=== PATIENT | female | born 2000 | race African-American/Black ===

== ENCOUNTER 2025-10-02 16:37 | Emergency (ER) | payer SELFPAY ==
[2025-10-02 16:49] VITALS: BP 136/53; PULSE 74; RESP 18; TEMP 36.6; O2SAT 99
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
--- OUTSIDE RECORDS SUMMARY | 2025-10-02 17:01 | XMS_ITS | Clinical Summary ---
Author Organization [facility] Address [address] [place] [address] Care Team Providers Care Sql Developer Dba Name Role Phone Iredell, Cali Devin Primary Care Provider Allergies No known active allergies Medications sertraline (ZOLOFT) 50 mg tabletIndication s:Mild mood disorder Take 1 tablet (50 mg total) by mouth daily 90 tablet 2 09/13/2024 Active Active Problems Problem Noted Date Diagnosed Date Palpitations 02/17/2024 Assessment & Plan (02/17/2024 2:59 PM CDT): New onset. EKG and orthostatic vitals completed in office with normal results. CBC,CMP, and TSH ordered. 48 hour Holter monitor also ordered. Patient to avoid caffeine and strenuous exercise until test results are obtained. Patient instructed to go to the ER if palpations worsen. Routine physical examination 12/27/2023 Morbid obesity with BMI of 40.0-44.9, adult 11/30 Tinnitus of both ears 01/08/2023 Mild mood disorder 05/01/2020 Resolved Problems Problem Noted Date Diagnosed Date Resolved Date Sensation of fullness in right ear 01/08/2023 12/27/2023 Immunizations Immunization Administration Dates Next Due DTP 01/21/2004, 0,07/04/1999,04/29/1999, 02/28/1999 DTaP 01/21/2004, 0,07/04/1999,04/29/1999, 02/28/1999 DTaP / IPV 01/21/2004,1999,04/29/1999 ,02/28/1999 HPV, Unspecified 06/05/2014,02/27/2012, 1 Hep A, Adult 07/24/2011 Hep A, Unspecified 06/05/2014,07/24/2011 Hep B / HiB 01/02/2000,04/29/1999,02/28/1999 Hep B Vaccine 01/02/2000,04/29/1999,02/28/1999 Hib (PRP-OMP) 01/02/2000,04/29/1999,02/28/1999 IPV 01/21/2004, 0,1999,04/29/1999, 02/28/1999 Influenza, Unspecified 12/27/2023(Deferr ed: Patient Refused),10/29/2023(Deferred: Patient Refused),01/02/2000,04/29/1999,02/28/1999 MMR 01/21/2004,03/26/2000 MMRV 01/21/2004,03/26/2000 Meningococcal MCV4, Unspecified 06/17/2016,07/24 Meningococcal MCV4P (Menactra) 07/24/2011 Pneumococcal Conjugate Pcv20 12/27/2023(Deferred : Patient Refused) Tdap 04/30/2010 Varicella 05/04/2008,01/02/2000 Medical History Medical History Date Comments Anxiety Depression Ear problems Tinnitus Family History Medical History Relation Name Comments No Known Problems Father No Known Problems Mother Relation Name Status Comments Father Alive Mother Alive Social History Tobacco Use Types Packs/Day Years Used Date Smoking Tobacco: Never Smokeless Tobacco: Never Tobacco Cessation:Counseling Given: Not Answered Alcohol Use Standard Drinks/Week Comments Never 0 (1 standard drink = 0.6 oz pur e alcohol) AUDIT-C Answer Date Recorded Q1: How often do you have a drink containing alc ohol? Monthly or less 12/27/2023 Q2: How many drinks containi ng alcohol do you have on a typical day when you are drinking? 1 or 2 12/27/2023 Q3: How often do you have si x or more drinks on one occasion? Never 12/27/2023 PHQ-2 Answer Date Recorded PHQ-2 Total Score (If total score is 3 or more points, staff should administer the PHQ-9) 0 12/27/2023 Personal Safety Answer Date Recorded Getting School Help Needed Not on file 11/30 Comments No Sex and Gender Information Value Date Recorded Sex Assigned at Not on file Legal Sex Female 10:13 PM CDT Gender Identity Female 05/21/2021 11:03 PM CDT Sexual Orientation Not on file Last Filed Vital Signs Vital Sign Reading Time Taken Comments Blood Pressure 100/62 02/17/2024 2:01 PM CDT Pulse 85 02/17/2024 2:01 PM CDT Temperature 36.5 C (97.7 F) 02/17/2024 1:14 PM CDT Respiratory Rate 18 02/17/2024 1:14 PM CDT Oxygen Saturation 99% 02/17/2024 1:14 PM CDT Inhaled Oxygen Concentration - - Weight 89.4 kg (197 lb) 02/17/2024 1:14 PM CDT Height 149.9 cm (4' 11) 02/17/2024 1:14 PM CDT Body Mass Index 39.79 02/17/2024 1:14 PM CDT Plan of Treatment Health Maintenance Due Date Last Done Comments Cervical Cancer Screening 1998 Hepatitis C Screening 1998 Regular Well Visit/Exam 18-64 2016 DTaP/Tdap/Td Vaccine (7 - Td or Tdap) 04/30/2020 04/30/2010, 01/21/2004, 01/21/2004, Additional history exists Depression Screening 12/27/2024 12/27/2023 Influenza Vaccine (#1) 2025 0, 04/29/1999, 02/28/1999 Hepatitis B Screening Completed 01/02/2000 , 01/02/2000, 04/29/1999, Additional history exists Varicella Vaccines Completed 05/04/2008, 0 01/21/2004, 03/26/2000, Additional history exists HPV Vaccines Completed 06/05/2014, 01/29, 07/24/2011 Pneumococcal vaccine <65 Aged Out No longer eligible based on patient's age to complete this topic Insurance [employer] [facility] [facility] [employer] [id number] [employer] Care Teams Sql Developer Dba Relationship Specialty Start Date End Date Cali Rincon DO PCP - General Family Practice 05/21/21
--- OUTSIDE RECORDS SUMMARY | 2025-10-02 17:01 | XMS_ITS | Clinical Summary ---
Author Organization [facility] Address [address] [place] [id number] Care Team Providers Care Health Commissioner Name Role Phone Cali Rincon DO Primary Care Provider Cali Rincon DO Unavailable [phone] Allergies No known active allergies Medications sertraline (ZOLOFT) 50 MG tabletIndication s:Mild mood disorder Take 1 tablet (50 mg total) by mouth daily. 30 tablet 11/30/2023 Active Active Problems Problem Noted Date Diagnosed Date Dysfunction of right eustachian tube 07/21/2022 Mild mood disorder 05/01/2020 Recurrent major depressive disorder 06/26/2017 Encounter for preventive health examination 01/2014 Overview (04/06/2019): Transitioned From: Encounter for preventive health examination Immunizations Immunization Administration Dates Next Due Dtap 01/21/2004, 0,07/04/1999,04/29/1999 ,02/28/1999 Dtp (Generic) 01/21/2004, 0,07/04/1999,04/29/1999 ,02/28/1999 HPV 06/05/2014,02/27/2012,07/24/2011 Hepatitis A (Generic) 06/05/2014,07/24/2011 Hepatitis A (Havrix [address]) 07/24/2011 Hepatitis B (Generic: Adult) 01/02/2000,04/29/19 99,02/28/1999 Hib Vaccine, Prp-Omp 01/02/2000,04/29/1999,02/28 Hib-Hepatitis B (Comvax) 01/02/2000,04/29/1999,0 02/28/1999 Influenza Adult (Generic) 01/02/2000,04/29/1999, 02/28/1999 MMR 01/21/2004,03/26/2000 MMR (Generic) 01/21/2004,03/26/2000 Meningococcal (Menactra) 07/24/2011 Meningococcal Vac A,C,Y,W-135 Sc 06/17/2016,08/2 04/2011 Polio IPV (Ipol) 01/21/2004,1999, 9,02/28/1999 Polio Ipv (Generic) 01/21/2004,1999,1998,02/28/1999 Tdap (Generic) 04/30/2010 Varicella (Generic) 05/04/2008,01/02/2000 Varicella Vaccine 05/04/2008,01/02/2000 Social History Tobacco Use Types Packs/Day Years Used Date Smoking Tobacco: Never Smokeless Tobacco: Never Alcohol Use Standard Drinks/Week Comments No 0 (1 standard drink = 0.6 oz pur e alcohol) AUDIT-C Answer Date Recorded Frequency of Alcohol Consumption Never 04/06/2019 Average Number of Drinks Not on file 019 Frequency of Binge Drinking Not on file 07/2019 PHQ-2 Answer Date Recorded PHQ-2 Score - If the patient scores above 3, please move on to questions 3-9 0 07/21/2022 Comments No Sex and Gender Information Value Date Recorded Sex Assigned at Not on file Legal Sex Female 9:28 PM LIFE ENRICHMENT MANAGER Gender Identity Not on file Sexual Orientation Not on file Last Filed Vital Signs Vital Sign Reading Time Taken Comments Blood Pressure 114/78 10/12/2023 4:03 PM LIFE ENRICHMENT MANAGER Pulse 84 07/21/2022 2:49 PM CDT Temperature 37.3 C (99.1 F) 07/21/2022 2:49 PM CDT Respiratory Rate 18 04/06/2019 2:30 PM CDT Oxygen Saturation 100% 04/06/2019 2:30 PM CDT Inhaled Oxygen Concentration - - Weight 89.4 kg (197 lb) 10/12/2023 4:03 PM LIFE ENRICHMENT MANAGER Height 152.4 cm (5') 10/12/2023 4:03 PM LIFE ENRICHMENT MANAGER Body Mass Index 38.47 10/12/2023 4:03 PM LIFE ENRICHMENT MANAGER Plan of Treatment Health Maintenance Due Date Last Done Comments Cervical Cancer Screening Pap Smear (Age 21 to 29) Every 3 Years 1998 Cervical Cancer Screening 1998 Hepatitis C 2016 DTaP, Tdap and Td Vaccines (7 - Td or Tdap) 04/30/2020 04/30/2010, 01/21/2004, 01/21/2004, Additional history exists Annual Physical 10/12/2024 10/12/2023, 06/30, 06/16/2021, Additional history exists COVID-19 Vaccine ( season) 2025 Influenza Adult (#1) 2025 01/02/2000, 04/29/1999, 02/28/1999 Hepatitis B Vaccines Completed 01/02/2000, 01/02/2000, 04/29/1999, Additional history exists HPV Vaccines Completed 06/05/2014, 01/29, 07/24/2011 Hepatitis A Vaccines Completed 06/05/2014, 07/24/2011, 07/24/2011 Meningococcal Vaccine Aged Out 06/17/2016 , 07/24/2011, 07/24/2011 No longer eligible based on patient's age to complete this topic Meningococcal B Vaccine Aged Out No l onger eligible based on patient's age to complete this topic Pneumococcal Vaccine: Pediatrics (0 to 5 Years) and At-Risk Patients (6 to 49 Years) Aged Out No longer eligible based on patient's age to complete this topic RSV Immunizations Under 20 Months Aged Out No longer eligible based on patient's age to complete this topic Insurance [facility] [employer] Care Teams Health Commissioner Relationship Specialty Start Date End Date Cali Rincon DO PCP - General FAMILY PRACTICE 04/06/19 Cali Rincon DO FAMILY PRACTICE 04/06/19
--- NOTE | 2025-10-02 17:20 | ED.GENADULT ---
HPI - General Adult General Chief complaint: Head Injury Stated complaint: Head Injury Source: patient Mode of arrival: ambulatory Limitations: no limitations History of Present Illness HPI narrative: Pt presents for evaluation after having a work-related injury yesterday. 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 This caused the patient's left side of her head to strike a pole attached to a dry erase board. She states that her vision became white and she felt a bit lightheaded. She did not lose consciousness. She is not on blood thinners. No vomiting since the episode. Her lightheadedness has improved today. She has a mild pressure in the frontal region of her head but states it is not painful. She also reports the left side of her neck as feeling tender but denies pain per se. She tried taking Tylenol for her symptoms. Denies loss of range of motion the neck. Denies radicular component to the pain. No paresthesias. Related Data Home Medications ?Medication ?Instructions ?Recorded ?Confirmed ?Last Taken ?Type sertraline 50 mg tablet 50 mg PO DAILY 10/02/25 10/02/25 Unknown History Allergies Allergy/AdvReac Type Severity Reaction Status Date / Time No Known Allergies Allergy Verified 10/02/25 16:46 Review of Systems Review of Systems: CONSTITUTIONAL: Denies fever, chills, or sweats. EYES: Denies visual changes, redness, or discharge. ENT: Denies rhinorrhea, congestion, sore throat, or otalgia. CARDIOVASCULAR: Denies chest pain, palpitations, or edema. RESPIRATORY: Denies cough or dyspnea. GASTROINTESTINAL: Denies abdominal pain, nausea, vomiting, or diarrhea. GENITOURINARY: Denies dysuria or hematuria. SKIN: Denies rash or itching MUSCULOSKELETAL: Reports left side of the neck as feeling tender without pain per se. Denies back pain, joint pain, or myalgia. NEUROLOGIC: Reports pressure in the frontal region of her head. Denies headache, numbness, dizziness, or weakness. Reports mild lightheadedness, which is improving PSYCHIATRIC: Denies anxiety or depression. [facility] Past Medical History Medical History (Reviewed 10/02/25 @ 17:25 by Rikki Messer, CUTTING AND SPLICING SUPERVISOR, PAPER MILL SUPERINTENDENT) No pertinent past medical history Surgical History Surgical History No pertinent past surgical history Family History Family History Mother Family history non-contributory Social History Social History Living arrangements: with family Additional occupation/education comments: works at a preschool Gender identity (if verbalized by the patient): Female Exam Narrative: GENERAL: Well-appearing, well-nourished, and in no acute distress. HEAD: Normocephalic. there is mild tenderness to the left occipital region of her scalp without any obvious skull depression, swelling or abnormal skin appear EYES: PERRLA and EOMI. ENT: Nares clear, no rhinorrhea or epistaxis. Mucous membranes moist. Oropharynx without tonsillar hypertrophy exudate or other lesions. Bilateral TMs pearly kaba nonbulging NECK: Supple. No adenopathy or masses. No carotid bruits or JVD. full range of motion of the neck. No tenderness in the midline or paraspinous muscles of the neck when the lateral musculature of the neck CHEST: Clear to auscultation. No respiratory distress. No wheezes rales or rhonchi HEART: Regular rate and rhythm. No murmur heard. Normal peripheral pulses. ABDOMEN: Soft, nontender, nondistended, normal active bowel sounds. EXTREMITIES: Normal range of motion. No edema. SKIN: Warm, dry, no rash. NEURO: No focal deficits. Alert and oriented x3. PSYCH: Normal mood and affect. Course Course Emergency Course: This is a 24 yr old female who presented for evaluation after a work related injury yesterday. she is neurologically intact. No clinical indication for neuro imaging. She has no tenderness in the midline or paraspinous muscles of the neck to suggest cervical spinal injury. Recommend [id number] agents for symptom management. Application of warm moist female or neck. Follow-up with primary provider. Go to the ER for worsening symptoms. Patient in agreement with plan of care. Level of Care: Express Care Visit Vital Signs Vital signs: Vital Signs Temperature 36.6 C 10/02/25 16:49 Pulse Rate 74 10/02/25 16:49 Respiratory Rate 18 10/02/25 16:49 Blood Pressure 136/53 L 10/02/25 16:49 Pulse Oximetry 99 10/02/25 16:49 Oxygen Delivery Room Air 10/02/25 16:49 Temperature 36.6 C 10/02/25 16:49 Pulse Rate 74 10/02/25 16:49 Respiratory Rate 18 10/02/25 16:49 Blood Pressure 136/53 L 10/02/25 16:49 Pulse Oximetry 99 10/02/25 16:49 Oxygen Delivery Room Air 10/02/25 16:49 Medical Decision Making Vital Signs Vital Signs: Vital Signs Temperature 36.6 C 10/02/25 16:49 Pulse Rate 74 10/02/25 16:49 Respiratory Rate 18 10/02/25 16:49 Blood Pressure 136/53 L 10/02/25 16:49 Pulse Oximetry 99 10/02/25 16:49 Oxygen Delivery Room Air 10/02/25 16:49 Temperature 36.6 C 10/02/25 16:49 Pulse Rate 74 10/02/25 16:49 Respiratory Rate 18 10/02/25 16:49 Blood Pressure 136/53 L 10/02/25 16:49 Pulse Oximetry 99 10/02/25 16:49 Oxygen Delivery Room Air 10/02/25 16:49 Discharge Plan Discharge Clinical Impression: Contusion of head, Neck strain Patient Disposition: Home Condition: Stable Instructions: Antibiotic Form, Contusion in Adults (ED), Neck Pain (ED) Patient Language: Sinhala Prescriptions: No Action sertraline 50 mg tablet 50 mg PO DAILY Follow-up/Referrals: Sergey,Cali Kenyon DO [Primary Care Provider, Unknown] Stand Alone Forms: Work/School Release IP Time of Disposition: 17:16
== END 2025-10-02 17:19 | disposition home or self-care (01) ==
PROVIDERS: Emergency Provider Nurse Practitioner; PCP Family Medicine
DX: S00.93XA Contusion of unspecified part of head, initial encounter (principal); S16.1XXA Strain of muscle, fascia and tendon at neck level, initial encounter; Z79.899 Other long term (current) drug therapy; W22.09XA Striking against other stationary object, initial encounter; Y92.218 Other school as the place of occurrence of the external cause; Y99.0 Civilian activity done for income or pay
CPT/HCPCS: 99203; G0463